=== PATIENT | male | born 1975 | race African-American/Black ===

== ENCOUNTER 2017-05-16 01:50 | Emergency (ER) | payer SELFPAY ==
[2017-05-16 01:58] VITALS: BP 142/91
--- NOTE | 2017-05-16 02:01 | ED Physician Documentation ---
PD HPI OPHTHO - Stated complaint Stated Complaint: EYE PX - Chief complaint Chief Complaint: Heent - History obtained from History obtained from: Patient - History of Present Illness Timing - onset: Today (past couple of hours) Timing - duration: No: Hours Timing - details: Gradual onset (feeling of eyes irritated and some blurred vision.) Location: Both Quality / character: Burning, Aching Associated symptoms: Redness, Tearing, Photophobia. 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 No: Recent URI, Wears contacts Similar symptoms before: Diagnosis (had welding eye injury years ago; not a common problem as he wears eye protection regularly.) Review of Systems Constitutional: denies: Fever, Chills Eyes: reports: Decreased vision, Irritation. denies: Discharge Nose: denies: Rhinorrhea / runny nose, Congestion Throat: denies: Sore throat Respiratory: denies: Cough Skin: denies: Rash, Lesions PD PAST MEDICAL HISTORY - Past Medical History Cardiovascular: None Endocrine/Autoimmune: None HEENT: None - Present Medications Home Medications: Ambulatory Orders Medication Instructions Recorded Confirmed No Known Home Medications [No 05/16/17 05/16/17 Known Home Medications] - Allergies Allergies/Adverse Reactions: Allergies Allergy/AdvReac Type Severity Reaction Status Date / Time No Known Drug Allergies Allergy Verified 05/16/17 01:58 PD ED PE NORMAL - Vitals Vital signs reviewed: Yes - General General: Alert and oriented X 3, Well developed/nourished, Other (appears uncomfortable and hard for him to keep eyes open. Hyperemia both eyes. ) - HEENT HEENT: PERRL, EOMI (very light sensitive. ), Ears normal, Pharynx benign - Neck Neck: Supple, no meningeal sign, No adenopathy - Cardiac Cardiac: RRR, No murmur - Respiratory Respiratory: Clear bilaterally PD ED PE EXPANDED - Eyes Eyes: Injected conj/sclera, Fluorescein uptake (diffuse superficial in anterior band both eyes c/w DPK.). No: Exudate, Corneal FB Results - Vitals Vitals: Vital Signs - 24 hr 05/16/17 01:55 Temperature 36.9 C Heart Rate 99 Respiratory 18 Rate Blood Pressure 142/91 H O2 Saturation 96 Oxygen O2 Source Room air PD MEDICAL DECISION MAKING - ED course Complexity details: re-evaluated patient (feels much better with topical anesth eye drops. He was cautioned about short term use of them and not to be doing activity as would not be aware of further injury (recent articles in EM literature have attested to the safety of this practice for short term, less than a day).), considered differential, d/w patient Departure - Departure Disposition: 01 Home, Self Care Clinical Impression: Welders' keratitis of both eyes Condition: Stable Record reviewed to determine appropriate education?: Yes Instructions: ED Keratitis UV Follow-Up: Kevin Villalobos MD [Provider Admit Priv/Credential] - Comments: Use the numbing eye drops 1-2 drops every hour if needed for pain, for only short term of 12 hours or so. Usually the eyes have healed enough by that point to not need them. Ibuprofen 600 mg three times a day for a few days. Apply the antibiotic ointment 3-4 times daily to help with coating the eyes and to help prevent infection. Recheck if not improved over the next 1-2 days. Off work while hurting to prevent further injury. Forms: Activity restrictions Discharge Date/Time: 05/16/17 02:23
[2017-05-16] MEDS ORDERED: NEOMYCIN/POLYMYX/DEXAMETH OPHTH OINT EACHEYE STA (02:13)
[2017-05-16] MEDS ORDERED: IBUPROFEN 600 MG TABLET PO STA (02:13)
[2017-05-16] MEDS ORDERED: NEOMYCIN/POLYMYX/DEXAMETH OPHTH OINT ONE (02:16)
[2017-05-16] MEDS ORDERED: IBUPROFEN 600 MG TABLET PO ONE (02:16)
== END 2017-05-16 02:23 | disposition home or self-care (01) ==
LOC: ED 01:50
DX: H16.133 Photokeratitis, bilateral (principal); W89.8XXA Exposure to other man-made visible and ultraviolet light, initial encounter; Y93.89 Activity, other specified
CPT/HCPCS: 99283; A9270

== ENCOUNTER 2017-06-26 12:42 | Emergency (ER) | payer SELFPAY ==
[2017-06-26 12:56] VITALS: BP 128/82
--- NOTE | 2017-06-26 14:00 | ED Physician Documentation ---
PD HPI LOWER EXT INJURY - Stated complaint Stated Complaint: RIGHT FOOT PX - Chief complaint Chief Complaint: Ext Problem - History obtained from History obtained from: Patient - History of Present Illness PD HPI LOW EXT INJURY LOCATION: Right, Toe (great toe) Type of injury: Fall Where injury occurred: Home Timing - onset: Yesterday Timing - duration: Days (1) Timing - details: Abrupt onset Pain level max: 6 Pain level now: 3 Improved by: Rest Worsened by: Moving, Palpating, Other (ambulation) Associated symptoms: Swelling. No: Weakness, Numbness, Tingling Contributing factors: No: Anticoagulated, Prior ortho surgery Similar symptoms before: Has not had sx before Recently seen: Not recently seen Review of Systems Musculoskeletal: denies: Neck pain, Back pain Neurologic: denies: Focal weakness, Numbness, Headache, Head injury PD PAST MEDICAL HISTORY - Past Medical History Cardiovascular: None Endocrine/Autoimmune: None HEENT: None - Past Surgical History Past Surgical History: No - Present Medications Home Medications: Ambulatory Orders Medication Instructions Recorded Confirmed Ibuprofen [Motrin] 800 mg PO Q8H PRN #30 tablet 06/26/17 - Allergies Allergies/Adverse Reactions: Allergies Allergy/AdvReac Type Severity Reaction Status Date / Time No Known Drug Allergies Allergy Verified 05/16/17 01:58 - Social History Does the pt smoke?: Yes Smoking Status: Current every day smoker Does the pt drink ETOH?: Yes Does the pt have substance abuse?: No - Immunizations Immunizations are current?: Yes - POLST Patient has POLST: No PD ED PE NORMAL - Vitals Vital signs reviewed: Yes - General General: Alert and oriented X 3, No acute distress - Derm Derm: Warm and dry - Extremities Extremities: Other (Right foot - Tender to palpation over the first MTP joint. No gross deformity. Neurovascularly intact.) - Neuro Neuro: Alert and oriented X 3 - Psych Psych: Normal mood, Normal affect Results - Vitals Vitals: Vital Signs - 24 hr 06/26/17 12:53 Temperature 36.9 C Heart Rate 88 Respiratory 18 Rate Blood Pressure 128/82 H O2 Saturation 97 Oxygen O2 Source Room air - Rads (name of study) Right foot x-ray Radiology: Prelim report reviewed, EMP read contemporaneously, See rad report ( No acute abnormality) PD MEDICAL DECISION MAKING - ED course Complexity details: reviewed results, re-evaluated patient, considered differential, d/w patient ED course: Patient is a 41-year-old male who presents to the emergency department with what appears to be a strain of the right great toe. No acute findings on x- ray. Placed in a postoperative shoe for comfort. Will use Motrin and Tylenol as needed for pain at home. Counseled regarding missed fractures secondary to acute swelling and may need repeat xrays if not improving. Patient counseled regarding signs and symptoms for which I believe and urgent re-evaluation would be necessary. Patient with good understanding of and agreement to plan and is comfortable going home at this time This document was made in part using voice recognition software. While efforts are made to proofread this document, sound alike and grammatical errors may occur. Departure - Departure Disposition: 01 Home, Self Care Clinical Impression: Toe sprain Qualifiers: Encounter type: initial encounter Qualified Code(s): S93.509A - Unspecified sprain of unspecified toe(s), initial encounter Condition: Good Instructions: ED Sprain Toe Follow-Up: your,doctor in 1 week [Other] Prescriptions: Ibuprofen [Motrin] 800 mg PO Q8H PRN #30 tablet PRN Reason: PAIN &/OR FEVER Comments: Return if you worsen. Wear the post operative shoe for the next several days. Your xray is normal today. Forms: Activity restrictions Discharge Date/Time: 06/26/17 14:07
--- NOTE | 2017-06-26 14:08 | XRAY Preliminary Report ---
Exam: XR Foot 3 View RT IMPRESSION: No acute bony nor significant abnormality. [facility] SITE ID: [id number]
--- NOTE | 2017-06-26 14:45 | XRAY Report ---
EXAM: RIGHT FOOT RADIOGRAPHY EXAM DATE: 06/26/2017 01:48 p.m. CLINICAL HISTORY: First digit and metatarsal pain after a fall. COMPARISON: None. TECHNIQUE: 3 views. FINDINGS: Bones: Normal. No fractures or bone lesions. Joints: Normal. No subluxations. Soft Tissues: Intact moderate osteophyte at the calcaneal insertion plantar fascia. Minimal dystrophi c calcification at the calcaneal insertion of the Achilles tendon. IMPRESSION: No acute bony nor significant abnormality. [facility] Referring Provider Line: [phone] SITE ID: [id number]
== END 2017-06-26 14:07 | disposition home or self-care (01) ==
LOC: ED 12:42
DX: S93.501A Unspecified sprain of right great toe, initial encounter (principal); W01.0XXA Fall on same level from slipping, tripping and stumbling without subsequent striking against object, initial encounter; Y92.019 Unspecified place in single-family (private) house as the place of occurrence of the external cause; F17.200 Nicotine dependence, unspecified, uncomplicated
CPT/HCPCS: 99283

== ENCOUNTER 2018-01-04 13:10 | Emergency (ER) | payer SELFPAY ==
[2018-01-04 13:32] VITALS: BP 147/88
[2018-01-04] MEDS ORDERED: ALBUTEROL NEB 2.5 MG/3 ML INH STA (15:12)
[2018-01-04] MEDS ORDERED: DEXAMETHASONE 10 MG/ML VIAL PO STA (15:12)
--- NOTE | 2018-01-04 15:23 | ED Physician Documentation ---
PD HPI URI - Stated complaint Stated Complaint: FLU LIKE SX - Chief complaint Chief Complaint: Fever - History obtained from History obtained from: Patient - History of Present Illness Timing - onset: How many days ago (4) Timing duration: Days (4) Timing details: Gradual onset Pain level max: 5 Pain level now: 5 Associated symptoms: Fever, Chills, Sweats, Nasal congestion, Rhinorrhea, Dry cough. No: Sore throat, Hemoptysis, Chest pain, Dyspnea, NVD Contributing factors: Sick contact Improves by: Rest, Medication (has been taking his 's tamiflu.) Worsened by: Activity, Breathing Recently seen: Not recently seen Review of Systems Cardiac: denies: Chest pain / pressure Respiratory: reports: Cough GI: denies: Abdominal Pain, Vomiting, Diarrhea Skin: denies: Rash Musculoskeletal: denies: Neck pain, Back pain Neurologic: denies: Headache PD PAST MEDICAL HISTORY - Past Medical History Cardiovascular: None Endocrine/Autoimmune: None HEENT: None - Past Surgical History Past Surgical History: No - Present Medications Home Medications: Ambulatory Orders Medication Instructions Recorded Confirmed Ibuprofen [Motrin] 800 mg PO Q8H PRN #30 tablet 06/26/17 Albuterol Sulf [Ventolin Hfa 1 - 2 puffs INH Q4HR PRN #1 inhaler 01/04/18 Inhaler] Benzonatate [Tessalon Perle] 100 - 200 mg PO TID PRN #30 capsule 01/04/18 Meloxicam [Mobic] 15 mg PO DAILY PRN #20 tablet 01/04/18 predniSONE [Prednisone] 40 mg PO DAILY #10 tablet 01/04/18 - Allergies Allergies/Adverse Reactions: Allergies Allergy/AdvReac Type Severity Reaction Status Date / Time No Known Drug Allergies Allergy Verified 05/16/17 01:58 - Social History Does the pt smoke?: Yes Smoking Status: Current every day smoker Does the pt drink ETOH?: Yes Does the pt have substance abuse?: No - Immunizations Immunizations are current?: Yes - POLST Patient has POLST: No PD ED PE NORMAL - Vitals Vital signs reviewed: Yes - General General: Alert and oriented X 3, No acute distress, Well developed/nourished - HEENT HEENT: PERRL, Ears normal, Moist mucous membranes, Pharynx benign - Neck Neck: Supple, no meningeal sign - Cardiac Cardiac: RRR, Strong equal pulses - Respiratory Respiratory: No respiratory distress, Other (Wheezing bilaterally) - Abdomen Abdomen: Soft, Non tender, Non distended - Derm Derm: Warm and dry - Extremities Extremities: No edema, No calf tenderness / cord - Neuro Neuro: Alert and oriented X 3 - Psych Psych: Normal mood, Normal affect Results - Vitals Vitals: Vital Signs - 24 hr 01/04/18 01/04/18 01/04/18 13:17 15:32 16:31 Temperature 36.7 C 37.6 C H Heart Rate 92 96 99 Respiratory 18 20 18 Rate Blood Pressure 147/88 H O2 Saturation 98 99 Oxygen O2 Source Room air - Rads (name of study) cxr Radiology: Prelim report reviewed, EMP read contemporaneously, See rad report ( normal) PD MEDICAL DECISION MAKING - ED course Complexity details: reviewed results, re-evaluated patient, considered differential, d/w patient ED course: Patient is a 42-year-old male who presents to the emergency department with what appears to be a viral upper respiratory infection. No evidence of pneumonia. He is well-appearing, nontoxic. Feels much better after nebulizer treatment. Will prescribe an inhaler for home. We will continue supportive care and follow-up with his doctor. Patient counseled regarding signs and symptoms for which I believe and urgent re-evaluation would be necessary. Patient with good understanding of and agreement to plan and is comfortable going home at this time This document was made in part using voice recognition software. While efforts are made to proofread this document, sound alike and grammatical errors may occur. Departure - Departure Disposition: 01 Home, Self Care Clinical Impression: Viral URI Condition: Good Instructions: ED Viral Syndrome Follow-Up: your,doctor in 1 week [Other] Prescriptions: Albuterol Sulf [Ventolin Hfa Inhaler] 1 - 2 puffs INH Q4HR PRN #1 inhaler PRN Reason: Shortness Of Air/Wheezing Benzonatate [Tessalon Perle] 100 - 200 mg PO TID PRN #30 capsule PRN Reason: Cough Meloxicam [Mobic] 15 mg PO DAILY PRN #20 tablet PRN Reason: pain predniSONE [Prednisone] 40 mg PO DAILY #10 tablet Comments: Drink plenty of fluids and rest. Return if you worsen. Forms: Activity restrictions Discharge Date/Time: 01/04/18 16:33
--- NOTE | 2018-01-04 16:15 | XRAY Report ---
EXAM: CHEST RADIOGRAPHY EXAM DATE: 01/04/2018 03:56 PM. CLINICAL HISTORY: Cough for 10 days. Fever. COMPARISON: None. TECHNIQUE: 2 views. FINDINGS: Lungs/Pleura: No focal opacities evident. No pleural effusion. No pneumothorax. Normal volumes. Mediastinum: Heart and mediastinal contours are unremarkable. Other: No bony abnormalities noted. IMPRESSION: Normal 2-view chest radiography. [facility] Referring Provider Line: [phone] SITE ID: [id number]
== END 2018-01-04 16:33 | disposition home or self-care (01) ==
LOC: ED 13:10
DX: J06.9 Acute upper respiratory infection, unspecified (principal); B97.89 Other viral agents as the cause of diseases classified elsewhere; F17.200 Nicotine dependence, unspecified, uncomplicated
CPT/HCPCS: 71046; 94640; 94664; 99283; J7613

== ENCOUNTER 2019-12-28 21:08 | Emergency (ER) | payer OTHER ==
--- NOTE | 2019-12-28 21:14 | ED Physician Documentation ---
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 he denies any hx of pe or dvt, denies any sob currently, denies hemoptysis, denies hx of asthma or reactive airway disease.) Review of Systems Constitutional: reports: Reviewed and negative Eyes: reports: Reviewed and negative Ears: reports: Reviewed and negative Nose: reports: Reviewed and negative Throat: reports: Reviewed and negative Cardiac: reports: Reviewed and negative Respiratory: reports: Dyspnea GI: reports: Reviewed and negative : reports: Reviewed and negative Skin: reports: Reviewed and negative Musculoskeletal: reports: Reviewed and negative Neurologic: reports: Reviewed and negative Psychiatric: reports: Reviewed and negative Endocrine: reports: Reviewed and negative Immunocompromised: reports: Reviewed and negative PD PAST MEDICAL HISTORY - Past Medical History Cardiovascular: None Endocrine/Autoimmune: None HEENT: None - Past Surgical History Past Surgical History: No - Present Medications Home Medications: Ambulatory Orders Medication Instructions Recorded Confirmed Ibuprofen [Motrin] 800 mg PO Q8H PRN #30 tablet 06/26/17 Albuterol Sulf [Ventolin Hfa 1 - 2 puffs INH Q4HR PRN #1 inhaler 01/04/18 Inhaler] Benzonatate [Tessalon Perle] 100 - 200 mg PO TID PRN #30 capsule 01/04/18 Meloxicam [Mobic] 15 mg PO DAILY PRN #20 tablet 01/04/18 predniSONE [Prednisone] 40 mg PO DAILY #10 tablet 01/04/18 Albuterol Sulfate [Albuterol 18 gm IH Q4HR PRN #1 hfa.aer.ad 12/28/19 Sulfate Hfa] - Allergies Allergies/Adverse Reactions: Allergies Allergy/AdvReac Type Severity Reaction Status Date / Time No Known Drug Allergies Allergy Verified 12/28/19 21:11 - Social History Does the pt smoke?: Yes Smoking Status: Current every day smoker Does the pt drink ETOH?: Yes Does the pt have substance abuse?: No - Immunizations Immunizations are current?: Yes - POLST Patient has POLST: No PD ED PE NORMAL - Vitals Vital signs reviewed: Yes - General General: Alert and oriented X 3, No acute distress, Well developed/nourished - HEENT HEENT: Atraumatic, PERRL, EOMI - Neck Neck: Supple, no meningeal sign - Cardiac Cardiac: RRR, No murmur - Respiratory Respiratory: No respiratory distress, Clear bilaterally, Other (no W/R/R, no use of accessory muscles, no resp distress.) - Abdomen Abdomen: Normal bowel sounds, Soft, Non tender, Non distended - Derm Derm: Warm and dry - Extremities Extremities: No deformity - Neuro Neuro: Alert and oriented X 3, electrical prospector 2-12 intact, No motor deficit, No sensory d eficit, Normal speech - Psych Psych: Normal mood, Normal affect Results - Vitals Vitals: Vital Signs - 24 hr 12/28/19 12/28/19 21:11 22:06 Temperature 36.5 C Heart Rate 102 H 95 Respiratory 14 18 Rate Blood Pressure 147/91 H 140/96 H O2 Saturation 95 96 Oxygen O2 Source Room air Departure - Departure Disposition: 01 Home, Self Care Clinical Impression: SOB (shortness of breath) Condition: Good Instructions: ED Dyspnea Shortness of Breath Follow-Up: YOUR,DOCTOR [Other] - Tomorrow Prescriptions: Albuterol Sulfate [Albuterol Sulfate Hfa] 18 gm IH Q4HR PRN #1 hfa.aer.ad PRN Reason: Wheezing
--- NOTE | 2019-12-28 21:57 | XRAY Report ---
Reason: SOB Procedure Date: 12/28/2019 Accession Number: [id number] / [id number] Procedure: XR - Chest 2 View X-Ray CPT Code: 68808 Final Report FULL RESULT: EXAM: CHEST RADIOGRAPHY EXAM DATE: 12/28/2019 09:47 PM. CLINICAL HISTORY: SOB. COMPARISON: CHEST 2 VIEW 01/04/2018 3:34 PM. TECHNIQUE: 2 views. FINDINGS: Lungs/Pleura: No focal consolidation. No pleural effusion. No pneumothorax. Mild hyperinflation, as before. Mediastinum: Heart and mediastinal contours are unremarkable. Other: None. IMPRESSION: Mild hyperinflation. No focal consolidation. [facility]
[2019-12-28 22:07] VITALS: BP 140/96
== END 2019-12-28 22:15 | disposition home or self-care (01) ==
LOC: ED 21:08
DX: R06.02 Shortness of breath (principal); F17.200 Nicotine dependence, unspecified, uncomplicated
CPT/HCPCS: 71046; 99283

== ENCOUNTER 2020-08-29 23:38 | Emergency (ER) | payer OTHER ==
[2020-08-29 23:53] VITALS: BP 161/114
[2020-08-30] MEDS ORDERED: PROPARACAINE 0.5% OPHTH DROPS 15 ML EACHEYE STA (01:51)
--- NOTE | 2020-08-30 01:59 | ED Physician Documentation ---
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 Denies any foreign body sensation he reports a history of previous similar episodes. Denies any history of corneal refractive surgery such as PRK or LASEK. Review of Systems Constitutional: reports: Reviewed and negative Eyes: reports: Discharge, Irritation Ears: reports: Reviewed and negative Nose: reports: Reviewed and negative Throat: reports: Reviewed and negative Cardiac: reports: Reviewed and negative Respiratory: reports: Reviewed and negative GI: reports: Reviewed and negative : reports: Reviewed and negative Skin: reports: Reviewed and negative Musculoskeletal: reports: Reviewed and negative Neurologic: reports: Reviewed and negative Psychiatric: reports: Reviewed and negative Endocrine: reports: Reviewed and negative Immunocompromised: reports: Reviewed and negative PD PAST MEDICAL HISTORY - Past Medical History Cardiovascular: None Endocrine/Autoimmune: None HEENT: None - Past Surgical History Past Surgical History: No - Present Medications Home Medications: Ambulatory Orders Medication Instructions Recorded Confirmed No Known Home Medications 08/29/20 08/29/20 - Allergies Allergies/Adverse Reactions: Allergies Allergy/AdvReac Type Severity Reaction Status Date / Time No Known Drug Allergies Allergy Verified 08/29/20 23:52 - Social History Does the pt smoke?: Yes Smoking Status: Current every day smoker Does the pt drink ETOH?: Yes Does the pt have substance abuse?: No - Immunizations Immunizations are current?: Yes - POLST Patient has POLST: No PD ED PE NORMAL - Vitals Vital signs reviewed: Yes - General General: Alert and oriented X 3, No acute distress - HEENT HEENT: PERRL, EOMI, Other (Conjunctiva are injected and erythematous bilaterally no hypopyon no hyphema there is clear discharge bilaterally bilateral eyelids everted no foreign bodies noted floor seen both eyes wood's lamp shows no corneal ulcer or abrasion) - Neck Neck: Supple, no meningeal sign - Cardiac Cardiac: RRR, No murmur - Respiratory Respiratory: Clear bilaterally - Abdomen Abdomen: Normal bowel sounds, Soft, Non tender, Non distended - Derm Derm: Warm and dry - Extremities Extremities: No deformity - Neuro Neuro: Alert and oriented X 3 - Psych Psych: Normal mood, Normal affect Results - Vitals Vitals: Vital Signs - 24 hr 08/29/20 23:49 Temperature 36.6 C Heart Rate 86 Respiratory 16 Rate Blood Pressure 161/114 H O2 Saturation 97 Oxygen O2 Source Room air PD MEDICAL DECISION MAKING - ED course ED course: 44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 If you are not improving please follow-up with an eye doctor. Discharge Date/Time: 08/30/20 02:59
[2020-08-30] MEDS ORDERED: POLYMYXIN B/TRIMETH OPHTH DROPS EACHEYE STA (02:36)
[2020-08-30] MEDS ORDERED: HYDROcod/ACET 5/325 Prepack 4 PO STA (02:39)
== END 2020-08-30 02:59 | disposition home or self-care (01) ==
LOC: ED 23:38
DX: H16.133 Photokeratitis, bilateral (principal); W89.8XXA Exposure to other man-made visible and ultraviolet light, initial encounter; Y93.89 Activity, other specified; F17.200 Nicotine dependence, unspecified, uncomplicated
CPT/HCPCS: 99282; 99283; A9270; J3490

== ENCOUNTER 2020-11-29 08:00 | Outpatient (CLI) | payer OTHER ==
[2020-11-29 21:01] LABS: BILIRUBIN,URINE NEGATIVE (NEGATIVE); GLUCOSE, URINE (UA) NEGATIVE (NEGATIVE); KETONES,URINE (UA) NEGATIVE (NEGATIVE); LEUKOCYTE ESTERASE, URINE NEGATIVE (NEGATIVE); NITRITE,URINE NEGATIVE (NEGATIVE); OCCULT BLOOD,URINE NEGATIVE (NEGATIVE); PROTEIN,URINE NEGATIVE (NEGATIVE); UROBILINOGEN,URINE 0.2 (NORMAL) E.U./dL (NORMAL)
[2020-11-29 21:17] LABS: CLARITY,URINE CLEAR (CLEAR)
[2020-11-29 21:18] LABS: AMORPHOUS SEDIMENT,UR Rare /LPF; BACTERIA,URINE None Seen /HPF (None Seen); RBC,URINE None Seen /HPF (0-5); SQUAMOUS EPITHELIAL CELL,UR FEW Squamous (<= Few)
== END 2020-11-29 23:59 | disposition home or self-care (01) ==
LOC: LAB.R 08:00
PROVIDERS: ATTEND Emergency Medicine
DX: R10.32 Left lower quadrant pain (principal)
CPT/HCPCS: 81001; 87086

== ENCOUNTER 2022-08-16 10:13 | Emergency (ER) | payer OTHER ==
--- OUTSIDE RECORDS SUMMARY | 2022-08-16 10:52 | EXTERNAL MEDICAL SUMMARY RPT | Continuity of Care Document ---
:1975 Author Organization [facility] Address [address] [place] [address] Phone Allergies No information. Encounters No information. Functional Status No information. Immunizations No information. Medications No information. Problems No information. Procedures date description facility +0000 Visit Code Hold All Results/Labs No information. Social History No information. Vital Signs date measurement value units [id number] BP_diastolic BP_diastolic 104 mm[H g] [id number]+0000 BP_systolic BP_systolic 162 mm[Hg] [id number]+0000 heart_rate heart_rate 70 /min [id number]+0000 respiration_rate respiration_rate 16 /min [id number]+0000 temperature_metric temperature_metric 36.67 C [id number]+0000 temperature_standard temperature_standard 9 8 F [id number]+0000 weight_metric weight_metric 110.22 kg [id number]+0000 weight_standard weight_standard 243 lb
[2022-08-16] MEDS ORDERED: KETOROLAC 60 MG/2 ML VIAL IM STA (11:40)
[2022-08-16] MEDS ORDERED: HYDROmorphone 1 MG/ML CARPUJECT IM STA (11:41)
[2022-08-16] MEDS ORDERED: MAG HYDROX/AL HYDROX/SIMETH 30 ML UDC PO STA (11:42)
[2022-08-16] MEDS ORDERED: LIDOCAINE VISCOUS 2% 15 ML UDC MM STA (11:42)
--- NOTE | 2022-08-16 11:44 | ED Physician Documentation ---
History of Present Illness - Stated complaint Stated Complaint: L SHOULDER PX - Chief complaint Chief Complaint: Ext Problem - History obtained from History obtained from: Patient - Additonal information Additional information: The patient comes to the emergency department with chief complaint of left shoulder pain that started around 1:00 this morning. He states that initially, it was in his left superior anterior chest and radiated somewhat down into his lower chest and upper abdomen. He then felt it in his neck and over the course of the bruising Kehinde has noticed that it went into his substernal area and around into his right chest. He states that most of the left chest pain is gone and it hurts in his right chest. Sometimes it hurts to take a deep breath. He also states that being in an upright position is less uncomfortable than supine. He denies any nausea or vomiting. No shortness of breath. He has no history of any cardiac issues. He is otherwise fairly healthy. He has not had any lower extremity edema or pain. No clot history in his family that he knows of. Review of Systems Ten Systems: 10 systems reviewed and negative Constitutional: reports: Reviewed and negative Eyes: reports: Reviewed and negative Ears: reports: Reviewed and negative Nose: reports: Reviewed and negative Throat: reports: Reviewed and negative Cardiac: reports: Chest pain / pressure Respiratory: reports: Reviewed and negative GI: reports: Reviewed and negative : reports: Reviewed and negative Skin: reports: Reviewed and negative Musculoskeletal: reports: Reviewed and negative Neurologic: reports: Reviewed and negative Psychiatric: reports: Reviewed and negative Endocrine: reports: Reviewed and negative Immunocompromised: reports: Reviewed and negative PD PAST MEDICAL HISTORY - Past Medical History Cardiovascular: None Endocrine/Autoimmune: None HEENT: None - Past Surgical History Past Surgical History: No - Present Medications Home Medications: Ambulatory Orders Medication Instructions Recorded Confirmed Cyclobenzaprine [Flexeril] 10 mg PO TID PRN #20 tablet 08/16/22 HYDROcod/ACETAM 5/325 [Raymond 5/325] 1 - 2 tablet PO Q6H PRN #6 tablet 08/16/22 - Allergies Allergies/Adverse Reactions: Allergies Allergy/AdvReac Type Severity Reaction Status Date / Time No Known Drug Allergies Allergy Verified 08/16/22 10:17 - Social History Does the pt smoke?: Yes Smoking Status: Current every day smoker Does the pt drink ETOH?: Yes Does the pt have substance abuse?: No - Immunizations Immunizations are current?: Yes - POLST Patient has POLST: No PD ED PE NORMAL - Vitals Vital signs reviewed: Yes - General General: Alert and oriented X 3, No acute distress, Well developed/nourished - HEENT HEENT: Atraumatic, PERRL, EOMI, Moist mucous membranes - Neck Neck: Supple, no meningeal sign, Other (Tenderness palpation over lateral neck musculature bilaterally. This extends over the trapezius distribution in the patient's upper back.) - Cardiac Cardiac: RRR, No murmur, Strong equal pulses - Respiratory Respiratory: No respiratory distress, Clear bilaterally - Abdomen Abdomen: Soft, Non tender, Non distended - Derm Derm: Normal color, Warm and dry, No rash - Extremities Extremities: No deformity, No edema, No calf tenderness / cord - Neuro Neuro: Alert and oriented X 3, machine stuffer automatic 2-12 intact, Normal speech - Psych Psych: Normal mood, Normal affect Results - Vitals Vitals: Vital Signs - 24 hr 08/16/22 08/16/22 10:17 13:27 Temperature 36.5 C 36.5 C Heart Rate 82 80 Respiratory 16 16 Rate Blood Pressure 144/95 H 138/88 H O2 Saturation 98 98 Oxygen O2 Source Room air - EKG (time done) 1036 Rate: Rate (enter#) (106) Rhythm: Sinus tachycardia [place]: Normal Intervals: Normal [place] QRS: LVH Ischemia: Normal ST segments Compare to prior EKG: Old EKG unavailable Computer interpretation: Agree with computer - Labs Labs: Laboratory Tests 08/16/22 08/16/22 08/16/22 11:58 11:58 11:58 WBC 9.5 RBC 5.34 Hgb 15.8 Hct 47.5 MCV 89.0 MCH 29.6 MCHC 33.3 RDW 14.2 Plt Count 276 MPV 8.3 Neut # (Auto) 6.6 Lymph # (Auto) 2.1 [place] # (Auto) 0.7 Eos # (Auto) 0.0 Baso # (Auto) 0.1 Absolute Nucleated RBC 0.00 Nucleated RBC % 0.0 D-Dimer < 200.0 L Sodium 137 Potassium 4.4 Chloride 102 Carbon Dioxide 26 Anion Gap 9.0 BUN 12 Creatinine 1.0 Estimated GFR (MDRD) 98 Glucose 127 H Calcium 9.8 Total Bilirubin 0.3 AST 24 ALT 24 Alkaline Phosphatase 69 Troponin I High Sens Total Protein 8.4 H Albumin 4.6 Globulin 3.9 Albumin/Globulin Ratio 1.2 Lipase 30 08/16/22 11:58 WBC RBC Hgb Hct MCV MCH MCHC RDW Plt Count MPV Neut # (Auto) Lymph # (Auto) [place] # (Auto) Eos # (Auto) Baso # (Auto) Absolute Nucleated RBC Nucleated RBC % D-Dimer Sodium Potassium Chloride Carbon Dioxide Anion Gap BUN Creatinine Estimated GFR (MDRD) Glucose Calcium Total Bilirubin AST ALT Alkaline Phosphatase Troponin I High Sens 3.2 Total Protein Albumin Globulin Albumin/Globulin Ratio Lipase - Rads (name of study) Chest x-ray Radiology: Final report received, EMP read indepedently, See rad report (Negative) PD MEDICAL DECISION MAKING - ED course Complexity details: reviewed results, re-evaluated patient, considered differential, d/w patient, d/w family ED course: The patient received Toradol and Dilaudid IM as well as a GI cocktail, yet still reported pain after receiving all this. He did report that it was a little better, however. The extensive work-up including EKG, chest x-ray, and labs including troponin and D-dimer were all unremarkable. The patient did have some reproducible pain and tenderness and I felt that most likely, the etiology of his discomfort was musculoskeletal. We have discussed symptomatic management at home, the need for follow-up, and the usual indications for return. Departure - Departure Disposition: 01 Home, Self Care Clinical Impression: Chest wall pain, Neck pain Condition: Stable Instructions: ED Chest Pain Costochondritis, ED Neck Pain No Trauma Prescriptions: Cyclobenzaprine [Flexeril] 10 mg PO TID PRN #20 tablet PRN Reason: Spasms HYDROcod/ACETAM 5/325 [Raymond 5/325] 1 - 2 tablet PO Q6H PRN #6 tablet PRN Reason: Pain Comments: Extensive work-up to determine the cause of your pain is all been negative. You have been screened for all of the emergent causes of chest pain have not been found to have evidence of any of these. The fact that your pain is worse with deep breaths and certain positions or movements indicates it is most likely to be a musculoskeletal pain. May take the muscle relaxer and pain medication as needed, as well as an anti-inflammatory such as ibuprofen or naproxen. Please follow-up with your primary care physician if symptoms continue for more than the next week. In the meantime, please be sure to do plenty of stretching and ice, heat, and massage to assist in helping the pain. Your prescriptions been electronically transmitted to [facility] pharmacy in [place]. Discharge Date/Time: 08/16/22 13:27
[2022-08-16 12:06] LABS: BASOPHILS # (AUTO) 0.1 10^3/uL (0.0-0.1); BASOPHILS % (AUTO) 0.5 %; EOSINOPHILS % (AUTO) 0.3 %; HCT - HEMATOCRIT 47.5 % (42.0-52.0); HGB - HEMOGLOBIN 15.8 g/dL (14.0-18.0); LYMPHOCYTES # (AUTO) 2.1 10^3/uL (1.5-3.5); LYMPHOCYTES % (AUTO) 22.4 %; MEAN CORPUSCULAR HEMOGLOBIN 29.6 pg (27.0-31.0); MEAN CORPUSCULAR HGB CONC 33.3 g/dL (32.0-36.0); MEAN PLATELET VOLUME 8.3 fL (7.4-11.4); MONOCYTES # (AUTO) 0.7 10^3/uL (0.0-1.0); MONOCYTES % (AUTO) 7.2 %; NEUTROPHILS # (AUTO) 6.6 10^3/uL (1.5-6.6); NEUTROPHILS % (AUTO) 69.3 %; PLT - PLATELET COUNT 276 10^3/uL (130-450); RED BLOOD COUNT 5.34 10^6/uL (4.70-6.10); RED CELL DISTRIBUTION WIDTH 14.2 % (12.0-15.0); WHITE BLOOD COUNT 9.5 x10^3/uL (4.8-10.8)
[2022-08-16 12:24] LABS: ALBUMIN 4.6 g/dL (3.2-5.5); ALBUMIN/GLOBULIN RATIO 1.2 (1.0-2.2); BILIRUBIN,TOTAL 0.3 mg/dL (0.2-1.0); CALCIUM 9.8 mg/dL (8.5-10.3); POTASSIUM 4.4 mmol/L (3.5-5.0); TOTAL PROTEIN 8.4 g/dL (6.7-8.2)
--- NOTE | 2022-08-16 12:42 | XRAY Report ---
PROCEDURE: Chest 1 View X-Ray INDICATIONS: chest pain TECHNIQUE: One view of the chest was acquired. COMPARISON: Chest x-ray 12/28/2019 FINDINGS: Surgical changes and devices: None. Lungs and pleura: No pleural effusions or pneumothorax. Lungs are clear. Mediastinum: Mediastinal contours appear normal. Heart size is normal. Bones and chest wall: No suspicious bony lesions. Overlying soft tissues appear unremarkable. IMPRESSION: No acute pulmonary process. Reviewed by: Bhavana Stein MD on 08/16/2022 12:40 PM PDT Approved by: Bhavana Stein MD on 08/16/2022 12:40 PM PDT Station ID: [id number]
[2022-08-16 13:29] VITALS: BP 138/88
== END 2022-08-16 13:27 | disposition home or self-care (01) ==
LOC: ED 10:13
DX: R07.89 Other chest pain (principal); M54.2 Cervicalgia; F17.200 Nicotine dependence, unspecified, uncomplicated
CPT/HCPCS: 36415; 71045; 80053; 83690; 84484; 85025; 85379; 93005; 96372; 99284; A9270; J1170